=== PATIENT | female | born 1940 | race Caucasian/White ===

== ENCOUNTER 2021-09-12 12:29 | Emergency (ER) | payer MEDICARE, OTHER, SELFPAY ==
--- NOTE | ~2021-09-12 | XR_ITS ---
EXAMINATION: XR humerus RT DATE: 09/12/2021 13:54 INDICATION: Right humerus pain. TECHNIQUE: 2 views of right humerus were obtained. COMPARISON: Right elbow radiographs 02/12/2017 FINDINGS: Bone alignment is normal. No acute fracture. There is severe osteoarthritis of acromioclavi cular joint. Glenohumeral joint is normal. There is an old healed fracture deformity of radial head. IMPRESSION: 1. Severe osteoarthritis of acromioclavicular joint. Reviewed, dictated and finalized at location A.
[2021-09-12 12:35] VITALS: BP 142/92; PULSE 82; RESP 14; TEMP 37.2; O2SAT 100
--- NOTE | 2021-09-12 12:54 | ED.UPPEXIN ---
HPI - Extremity Injury (Upper) General Chief Complaint: Extremity Injury, Upper Stated Complaint: right shoulder/arm pain Time Seen by Provider: 09/12/21 12:55 Source: patient and RN notes reviewed Mode of arrival: ambulatory Limitations: no limitations History of Present Illness HPI narrative: 88 year old female presents with concern for right upper arm pain. She reports she has had mild aggravating pain in the right shoulder and upper arm for approximately two months, which has been worsening over the past two days. Reports today while driving and making a left hand turn, she felt a pop or crack in her right upper arm. She reports limited ROM, denies decreased sensation. She has been using tylenol for pain over the last two months. MD complaint: injury to: right and shoulder Related Data Home Medications Medication Instructions Recorded Confirmed Bifidobacterium infantis 10.5 mg mg PO 03/28/19 (10 million cell) chewable tablet (Align) acetaminophen 500 mg tablet 500 mg PO Q6H PRN Pain 03/28/19 09/12/21 (Tylenol Extra Strength) alprazolam 1 mg tablet (Xanax) 1 mg PO HS PRN Anxiety 03/28/19 09/12/21 calcium carb 300 mg-D3 800 1 tablet PO BID 03/28/19 09/12/21 unit-mag ox 25 mg-[employer] 0.5 mg-nimesh-Zn tablet (Caltrate + D3 Plus Minerals) carvedilol 25 mg tablet (Coreg) 25 mg PO BID 03/28/19 09/12/21 cholecalciferol (vitamin D3) 50 2,000 unit PO DAILY 03/28/19 09/12/21 mcg (2,000 unit) tablet (Vitamin D3) cyanocobalamin (vitamin B-12) 1,000 mcg PO DAILY 03/28/19 09/12/21 1,000 mcg tablet (Vitamin B-12) hydrochlorothiazide 25 mg tablet 25 mg PO DAILY 03/28/19 09/12/21 irbesartan 75 mg tablet 75 mg PO DAILY 03/28/19 09/12/21 latanoprost 0.005 % eye drops 03/28/19 nortriptyline 75 mg capsule mg 03/28/19 (Pamelor) pantoprazole 40 mg tablet,delayed 40 mg PO HS 03/28/19 09/12/21 release (Protonix) pravastatin 40 mg tablet 40 mg PO BID 03/28/19 09/12/21 prednisone 5 mg tablet 5 mg PO DAILY 03/28/19 09/12/21 sucralfate 1 gram tablet g 03/28/19 triazolam 0.125 mg tablet 0.125 mg PO ONCE 03/28/19 09/12/21 amlodipine 5 mg tablet 5 mg PO DAILY 09/12/21 09/12/21 levomefolate calcium 15 mg tablet 15 mg PO DAILY 09/12/21 09/12/21 (L-Methylfolate) metformin 500 mg tablet,extended 500 mg PO DAILY 09/12/21 09/12/21 release 24 hr nitroglycerin 0.4 mg sublingual 0.4 mg sublingual Q5-15M PRN Angina 09/12/21 09/12/21 tablet Allergies Allergy/AdvReac Type Severity Reaction Status Date / Time codeine Allergy Mild vomiting Verified 09/12/21 12:38 propoxyphene Allergy Unknown Unknown Verified 09/12/21 12:38 lisinopril AdvReac Unknown cough Verified 09/12/21 12:38 Review of Systems Review of Systems: CONSTITUTIONAL: Denies malaise, chills, sweats, or fever. CARDIOVASCULAR: Denies chest pain, palpitations, or edema. RESPIRATORY: Denies cough or dyspnea. SKIN: Denies rash or itching, bruising, redness, swelling. MUSCULOSKELETAL: Reports right upper arm pain NEUROLOGIC: Denies numbness, weakness All systems reviewed & are unremarkable except as noted in HPI and below PMFSH Past Medical History Medical History (Updated 09/12/21 @ 14:17 by Anne-Marie Diaz NP) GERD (gastroesophageal reflux disease) Hypertension Social History Social History (Updated 04/02/19 @ 07:32 by Rupert Silva DO) Smoking status: Never smoker Gender identity (if verbalized by the patient): Female Comments At time of signature, agree with nursing past medical, surgical, social and family history. There is no relevant family history pertinent to the presenting complaint Exam Narrative: GENERAL: Well-appearing, well-nourished, and in no acute distress. HEAD: Normocephalic, atraumatic. EYES: PERRLA, conjunctivae clear NECK: Supple. CHEST: Speaks in full sentences. No respiratory distress. HEART: Regular rate and rhythm. Normal and equal peripheral pulses. EXTREMITIES: Right shoulder, arm, hand has normal strength an
--- NOTE | 2021-09-12 14:08 | PC.NURSE ---
1344 Patient arrived from [facility] for xray and then disposition. Patient is awake, alert, ambulatory.
== END 2021-09-12 14:35 | disposition home or self-care (01) ==
PROVIDERS: Emergency Provider Nurse Practitioner
DX: M79.621 Pain in right upper arm (principal); K21.9 Gastro-esophageal reflux disease without esophagitis; I10 Essential (primary) hypertension
CPT/HCPCS: 73060; 99213; A4565; G0463

== ENCOUNTER 2022-08-30 08:37 | Emergency (ER) | payer MEDICARE, OTHER, SELFPAY ==
--- NOTE | ~2022-08-30 | XR_ITS ---
EXAMINATION: XR elbow LT min 3V DATE: 08/30/2022 09:15 INDICATION: Left elbow pain. Fall. TECHNIQUE: 4 views of left elbow were obtained. COMPARISON: None. FINDINGS: Bone alignment is normal. No fracture. Joint spaces are normal. There are enthesophytes at the medial and lateral humeral epicondyles. No elbow joint effusion. IMPRESSION: 1. No fracture. Reviewed, dictated and finalized at location A. IMPRESSION: 1. No fracture.
--- NOTE | ~2022-08-30 | XR_ITS ---
EXAMINATION: XR hip LT 2V w AP pelvis DATE: 08/30/2022 09:15 INDICATION: Left groin pain. Fall. TECHNIQUE: An anteroposterior view of the pelvis and 2 views of left hip were obtained. COMPARISON: None. FINDINGS: Bone alignment is normal. No fracture. There is severe lumbar spondylosis. There is moderat e osteoarthritis of the hips. IMPRESSION: 1. Moderate osteoarthritis of the hips. Reviewed, dictated and finalized at location A.
[2022-08-30 08:52] VITALS: BP 127/67; PULSE 65; RESP 12; TEMP 36.2; O2SAT 98
--- NOTE | 2022-08-30 09:24 | ED.FALL ---
HPI - Fall General Chief Complaint: Fall Stated Complaint: Left Elbow/Right Hip Pain Time Seen by Provider: 08/30/22 09:24 Source: patient, family, RN notes reviewed and old records reviewed Mode of arrival: wheelchair Limitations: no limitations History of Present Illness HPI Narrative: 82 year old female accompanied by family members presents to express care with complaints of fall at home on Thursday morning when she tripped walking with her walker. Patient reports that she fell onto carpet did not hit her head and no LOC occurred or any dizziness prior to fall. Patient reports pain to her left groin/hip region and has pain to left elbow with jagged skin tear to elbow. Patient reports that they have been cleansing and applied dressing to skin tear at home. Patient has full ROM of left elbow and hip but with some discomfort. 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 0.5 mg-nimesh-Zn tablet (Caltrate + D3 Plus Minerals) carvedilol 25 mg tablet (Coreg) 50 mg PO DAILY 03/28/19 08/30/22 cholecalciferol (vitamin D3) 50 2,000 unit PO DAILY 03/28/19 08/30/22 mcg (2,000 unit) tablet (Vitamin D3) cyanocobalamin (vitamin B-12) 1,000 mcg PO DAILY 03/28/19 08/30/22 1,000 mcg tablet (Vitamin B-12) hydrochlorothiazide 25 mg tablet 25 mg PO DAILY 03/28/19 08/30/22 irbesartan 75 mg tablet 75 mg PO DAILY 03/28/19 08/30/22 latanoprost 0.005 % eye drops 1 drp EACH EYE DAILY 03/28/19 08/30/22 nortriptyline 75 mg capsule 85 mg PO DAILY 03/28/19 08/30/22 (Pamelor) pantoprazole 40 mg tablet,delayed 40 mg PO HS 03/28/19 08/30/22 release (Protonix) pravastatin 40 mg tablet 40 mg PO BID 03/28/19 08/30/22 prednisone 5 mg tablet 5 mg PO DAILY 03/28/19 08/30/22 sucralfate 1 gram tablet 2 g PO DAILY 03/28/19 08/30/22 triazolam 0.125 mg tablet 0.125 mg PO ONCE 03/28/19 08/30/22 amlodipine 5 mg tablet 5 mg PO DAILY 09/12/21 08/30/22 levomefolate calcium 15 mg tablet 15 mg PO DAILY 09/12/21 08/30/22 (L-Methylfolate) metformin 500 mg tablet,extended 500 mg PO DAILY 09/12/21 08/30/22 release 24 hr nitroglycerin 0.4 mg sublingual 0.4 mg sublingual Q5-15M PRN Angina 09/12/21 08/30/22 tablet Allergies Allergy/AdvReac Type Severity Reaction Status Date / Time codeine Allergy Mild vomiting Verified 08/30/22 08:58 propoxyphene Allergy Unknown Unknown Verified 08/30/22 08:58 lisinopril AdvReac Unknown cough Verified 08/30/22 08:58 Review of Systems Review of Systems: CONSTITUTIONAL: Denies fever, chills, or sweats. EYES: Denies visual changes, redness, or discharge. ENT: Denies rhinorrhea, congestion, sore throat, or otalgia. CARDIOVASCULAR: Denies chest pain, palpitations, or edema. RESPIRATORY: Denies cough or dyspnea. GASTROINTESTINAL: Denies abdominal pain, nausea, vomiting, or diarrhea. GENITOURINARY: Denies dysuria or hematuria. SKIN: Denies rash or itching. 2cmX 2cm skin tear to left elbow ecchymotic no drainage noted. MUSCULOSKELETAL: Denies back pain, positive for left hip/groin pain and left elbow pain, or myalgia. NEUROLOGIC: Denies headache, numbness, or weakness. PSYCHIATRIC: Reports history of anxiety or depression. All systems reviewed & are unremarkable except as noted in HPI and below PMFSH Past Medical History Medical History (Updated 09/01/22 @ 07:55 by Nirali Fernandez NP) Citrus disease Anxiety and depression Diabetes GERD (gastroesophageal reflux disease) Hyperlipidemia Hypertension Surgical History Surgical History (Updated 09/01/
== END 2022-08-30 10:00 | disposition home or self-care (01) ==
PROVIDERS: Emergency Provider Registered Nurse
DX: S50.02XA Contusion of left elbow, initial encounter (principal); W01.0XXA Fall on same level from slipping, tripping and stumbling without subsequent striking against object, initial encounter; S51.012A Laceration without foreign body of left elbow, initial encounter; R10.32 Left lower quadrant pain; E27.1 Primary adrenocortical insufficiency; E11.9 Type 2 diabetes mellitus without complications; K21.9 Gastro-esophageal reflux disease without esophagitis; E78.5 Hyperlipidemia, unspecified; I10 Essential (primary) hypertension; F41.9 Anxiety disorder, unspecified; F32.A Depression, unspecified
CPT/HCPCS: 73080; 73502; 99214; G0463